=== PATIENT | male | born 1945 | race Hispanic/Latino ===

== ENCOUNTER 2020-10-14 14:01 | Inpatient (IN) | payer OTHER, MEDICARE ==
[~2020-10-14] VITALS: Ht 162.6 cm; Wt 72.4 kg
[~2020-10-14 14:01] MED LIST: MULT-1289 PO; PHEN100C9 PO
[2020-10-14] MEDS ORDERED: DEXAMETHASONE SOD PHOSPHATE 4 MG/ML 1ML VIAL IVP SCH (14:51)
[2020-10-14] MEDS ORDERED: 0.9% NACL 250ML IVPB SCH (15:00)
[2020-10-14] MEDS ORDERED: AZITHROMYCIN 500MG VIAL IVPB SCH (15:00)
[2020-10-14] MEDS ORDERED: CEFTRIAXONE 1G VIAL IVP SCH (15:00)
[2020-10-14] MEDS ORDERED: MAGNESIUM 2GM PREMIX 50ML 50 ML IV SCH (15:00)
[2020-10-14] MEDS ORDERED: LACTATED RINGERS 1000ML 1,000 ML IV SCH ×2 (15:00→18:00)
[2020-10-14] MEDS ORDERED: ALBUTEROL INHALER 90MCG/INH IH SCH (15:00)
[2020-10-14] MEDS ORDERED: MONTELUKAST SODIUM 10 MG TAB PO SCH (15:00)
[2020-10-14 15:12] LABS: BASOPHILS % (AUTO) 0.1 % (0.0-5.0); EOSINOPHILS % (AUTO) 1.6 % (0.0-8.0); HEMATOCRIT 42.2 % (42-54); LYMPHOCYTES % (AUTO) 9.9 % (21.0-51.0); MEAN CORPUSCULAR HEMOGLOBIN 31.8 pg (27.0-33.0); MEAN CORPUSCULAR HGB CONC 35.5 g/dL (32.0-36.0); MEAN CORPUSCULAR VOLUME 89.6 fL (79-99); MONOCYTES % (AUTO) 1.9 % (3.0-13.0); NEUTROPHILS % (AUTO) 86.2 % (40.0-77.0); PLATELET COUNT (AUTO) 205 K/uL (130-400); RED BLOOD CELL COUNT(AUTO) 4.71 MIL/uL (4.50-6.20); RED CELL DISTRIBUTION WIDTH 12.1 % (11.0-15.5); WHITE BLOOD COUNT (AUTO) 9.4 K/uL (4.8-10.8)
[2020-10-14 15:15] LABS: ABG BASE EXCESS 0.3 mmol/L (-2.0-3.0); ABG HCO3 22.4 mmol/L (21.0-28.0); ABG OXYGEN SATURATION 75.6 % (95.0-99.0); ABG PCO2 30 mmHg (35-48)
[2020-10-14 15:24] LABS: CARBON DIOXIDE 26 mmol/L (21-32); CHLORIDE 97 mmol/L (101-111); CREATININE 1.6 mg/dL (0.5-1.5); GLOMERULAR FILTR. RATE CALC 45 mL/min (>60); GLUCOSE,RANDOM 123 mg/dL (70-105); POTASSIUM 4.3 mmol/L (3.5-5.1); SODIUM SERUM 134 mmol/L (136-145); UREA NITROGEN, BLOOD 33 mg/dL (7-18)
[2020-10-14 15:25] LABS: INR 1.19 (0.85-1.15); PROTHROMBIN TIME 12.8 SEC (9.6-11.6)
[2020-10-14 15:26] LABS: PARTIAL THROMBOPLASTIN TIME 29.3 SEC (26.3-35.5)
[2020-10-14 15:39] LABS: ALANINE AMINOTRANSFERASE 113 U/L (12-78); ALBUMIN 2.4 g/dL (3.5-5.0); ASPARTATE AMINOTRANSFERASE 266 U/L (10-37); BILIRUBIN,TOTAL 0.9 mg/dL (0.2-1.0); MYOGLOBIN 710 ng/mL (10-92); TOTAL PROTEIN, SERUM 7.5 g/dL (6.0-8.3); TROPONIN I < 0.04 ng/mL (0.00-0.06)
[2020-10-14 15:50] LABS: CREATINE KINASE, TOTAL 527 U/L (21-232); CRP QUANTITATIVE 463.6 mg/L (0.00-9.0)
[2020-10-14 16:11] LABS: ABG BASE EXCESS -0.4 mmol/L (-2.0-3.0); ABG HCO3 22.9 mmol/L (21.0-28.0); ABG OXYGEN SATURATION 97.4 % (95.0-99.0); ABG PCO2 34 mmHg (35-48)
[2020-10-14 16:34] VITALS: BP 113/73
[2020-10-14] MEDS ORDERED: VANCOMYCIN PROTOCOL PER PHARMACY IV SCH (18:00)
[2020-10-14] MEDS ORDERED: CEFEPIME HCL 2 GM VIAL IVP SCH (18:00)
[2020-10-14] MEDS ORDERED: PHARMACY COMMUNICATION MISC SCH ×3 (18:00→18:30)
[2020-10-14] MEDS ORDERED: ALBUTEROL INHALER 90MCG/INH IH PRN (18:30)
[2020-10-14] MEDS: 0.9% NACL 250ML IVPB SCH (18:52)
[2020-10-14] MEDS: DOXYCYCLINE 100MG+NS 250ML IV SCH (18:52)
[2020-10-14] MEDS ORDERED: GUAIFENESIN-DM 200/20 MG 10 ML PO PRN (19:00)
[2020-10-14] MEDS: CEFEPIME HCL 2 GM VIAL IVP SCH ×2 (19:00→23:45)
[2020-10-14 19:02] VITALS: BP 128/90
[2020-10-14 19:27] VITALS: BP 128/90
[2020-10-14] MEDS ORDERED: 0.9% NACL 250ML 250 ML IV SCH (19:30)
[2020-10-14] MEDS ORDERED: VANCOMYCIN KIT 1 GM/250 ML IV.KIT IV ONE (19:30)
[2020-10-14] MEDS: ENOXAPARIN SODIUM 40 MG/0.4 ML SYRINGE SQ SCH (21:00)
[2020-10-14] MEDS ORDERED: COMPOUND IV REFRIGERATED 1 EACH IVSOLN MISC PRN (21:00)
[2020-10-14] MEDS: BARICITINIB (EUA) 2 MG TABLET PO SCH (21:00)
[2020-10-14] MEDS: PHENYTOIN SODIUM 100 MG ERCAP PO SCH (21:00)
[2020-10-14] MEDS: DEXAMETHASONE SOD PHOSPHATE 4 MG/ML 1ML VIAL IVP SCH (21:00)
[2020-10-14] MEDS: INSULIN HUMULIN R 100 UNIT/ML 3ML SQ SCH (21:00)
[2020-10-14] MEDS ORDERED: REMDESIVIR (EUA) 520 200 MG in 0.9% NACL 250ML 250 ML IV ONE (21:00)
[2020-10-14 22:00] VITALS: BP 122/83
[2020-10-14] MEDS ORDERED: DiphenhydrAMINE HCL 50 MG/ML VIAL ONE (22:35)
[2020-10-14 23:48] LABS: APPEARANCE,URINE Clear (CLEAR); BILIRUBIN,URINE Negative (NEGATIVE); COLOR,URINE Dark Yellow (YELLOW); GLUCOSE, URINE (UA) Negative (NEGATIVE); KETONES,URINE Negative (NEGATIVE); LEUKOCYTE ESTERASE ,URINE Negative (NEGATIVE); NITRATE,URINE Negative (NEGATIVE); OCCULT BLOOD,URINE Small (NEGATIVE); PROTEIN,URINE POS 2+ mg/dL (NEGATIVE)
[2020-10-14 23:52] LABS: CREATININE,URINE RANDOM 119 mg/dL (30-135); SODIUM,URINE RANDOM 51 mmol/l (40-220)
[2020-10-14 23:57] VITALS: BP 170/91
[2020-10-14 23:57] LABS: AMPHET/METH SCREEN,URINE NEGATIVE (NEGATIVE); BARBITURATE SCREEN, URINE NEGATIVE (NEGATIVE); BENZODIAZEPINES SCREEN,URINE NEGATIVE (NEGATIVE); CANNABINOID SCREEN,URINE NEGATIVE (NEGATIVE); COCAINE SCREEN,URINE NEGATIVE (NEGATIVE); OPIATE SCREEN,URINE NEGATIVE (NEGATIVE); PHENCYCLIDINE SCREEN,URINE NEGATIVE (NEGATIVE)
[2020-10-15] VITALS (58 sets, daily range): BP systolic 60–171; BP diastolic 34–93
[2020-10-15] LABS: BACTERIA,URINE Rare /HPF (None Seen); RBC,URINE 0-1 /HPF (0-1); WBC,URINE 0-1 /HPF (0-1)
[2020-10-15] MEDS ORDERED: HYDRALAZINE 20MG/ML VIAL IV SCH
[2020-10-15 00:01] LABS: FINE GRANULAR CASTS,URINE 0-2 /LPF (None Seen); OTHER CASTS, URINE MIXED CELL CASTS 1+ /LPF (None Seen)
[2020-10-15 00:02] LABS: SQUAMOUS EPITHELIAL CELL,UR Rare /HPF (0-2)
[2020-10-15] MEDS ORDERED: HYDRALAZINE 20MG/ML VIAL ONE (00:09)
[2020-10-15] MEDS ORDERED: DiphenhydrAMINE HCL 50 MG/ML VIAL ONE (00:51)
[2020-10-15] MEDS ORDERED: ROCURONIUM BROMIDE 10MG/1ML 5ML VL ONE (01:45)
[2020-10-15] MEDS ORDERED: PROPOFOL 1000 MG/100 ML 100 ML IV ONE (01:50)
[2020-10-15 03:47] LABS: ABG BASE EXCESS -2.6 mmol/L (-2.0-3.0); ABG HCO3 23.3 mmol/L (21.0-28.0); ABG OXYGEN SATURATION 90.1 % (95.0-99.0); ABG PCO2 45 mmHg (35-48)
[2020-10-15] MEDS: MIDAZOLAM 100MG-0.9% NS 100ML 100ML BAG IV PRN ×2 (04:39→15:28)
[2020-10-15] MEDS ORDERED: NOREPINEPHRINE 4MG/NS 250ML 250 ML IV ONE ×3 (05:27→16:14)
[2020-10-15] MEDS: VANCOMYCIN 500MG+NS 100ML IVPB IV SCH ×2 (05:59→20:52)
[2020-10-15] MEDS: DOXYCYCLINE 100MG+NS 250ML IV SCH ×2 (06:00→20:52)
[2020-10-15] MEDS: REMDESIVIR LABS MISC SCH (06:00)
[2020-10-15] MEDS ORDERED: FENTANYL CITRATE PF 0.05 MG/ML 1,000 MCG in 0.9%NACL 100ML 100 ML IVPB PRN (06:00)
[2020-10-15] MEDS: INSULIN HUMULIN R 100 UNIT/ML 3ML SQ SCH ×3 (06:32→16:30)
[2020-10-15 06:44] LABS: ALBUMIN 2.1 g/dL (3.5-5.0); BILIRUBIN,DIRECT 0.4 mg/dL (0.0-0.3); BILIRUBIN,TOTAL 0.7 mg/dL (0.2-1.0); CREATININE 1.1 mg/dL (0.5-1.5); POTASSIUM 4.1 mmol/L (3.5-5.1); TOTAL PROTEIN, SERUM 6.7 g/dL (6.0-8.3)
[2020-10-15] MEDS: 0.9%NACL 100ML 100 ML IV SCH ×2 (07:00→20:52)
[2020-10-15] MEDS: 0.9% NACL 250ML IVPB SCH ×2 (07:00→20:53)
[2020-10-15] MEDS: BARICITINIB (EUA) 2 MG TABLET PO SCH (09:00)
[2020-10-15] MEDS: PHENYTOIN SODIUM 100 MG ERCAP PO SCH (09:00)
[2020-10-15] MEDS: DEXAMETHASONE SOD PHOSPHATE 4 MG/ML 1ML VIAL IVP SCH ×2 (10:21→20:51)
[2020-10-15] MEDS: PANTOPRAZOLE 40 MG/VIAL IVP SCH (10:21)
[2020-10-15] MEDS: ENOXAPARIN SODIUM 40 MG/0.4 ML SYRINGE SQ SCH ×2 (10:23→20:51)
[2020-10-15] MEDS ORDERED: DEXTROSE 50%-WATER 50 ML DISP.SYRIN IV ONE (11:58)
[2020-10-15] MEDS: ARTIFICAL TEARS SOL 15 ML OU SCH ×2 (12:00→18:00)
[2020-10-15] MEDS ORDERED: NOREPINEPHRINE BITARTRATE 8 MG in 0.9% NACL 250ML 250 ML IV SCH (12:00)
[2020-10-15] MEDS ORDERED: NOREPINEPHRINE 8MG/NS 250 ML 250 ML IV SCH (13:00)
[2020-10-15 13:58] LABS: ABG BASE EXCESS -2.6 mmol/L (-2.0-3.0); ABG HCO3 22.1 mmol/L (21.0-28.0); ABG OXYGEN SATURATION 96.1 % (95.0-99.0); ABG PCO2 38 mmHg (35-48)
[2020-10-15] MEDS: MIDODRINE HCL 5 MG TABLET GT SCH ×2 (14:00→21:52)
[2020-10-15] MEDS: PROPOFOL 1000 MG/100 ML 100 ML IV SCH ×2 (15:30→22:41)
[2020-10-15] MEDS: CISATRACURIUM BESYLATE 100 MG in 0.9%NACL 100ML 100 ML IV SCH (16:42)
[2020-10-15] MEDS ORDERED: PHARMACY COMMUNICATION MISC SCH (20:00)
[2020-10-15] MEDS: FENTANYL 2500MCG+NS 250ML 250 ML IV SCH (20:23)
[2020-10-15] MEDS: PHENYTOIN 100MG (50MG/ML) INJ 100 MG/2 ML ML IV SCH (20:50)
[2020-10-15] MEDS ORDERED: REMDESIVIR (EUA) 520 100 MG in 0.9% NACL 250ML 250 ML IV SCH (21:00)
[2020-10-15] MEDS ORDERED: FAMOTIDINE 20MG VIAL IV SCH (21:00)
[2020-10-16] VITALS (66 sets, daily range): BP systolic 79–161; BP diastolic 48–82
[2020-10-16] MEDS: CISATRACURIUM BESYLATE 100 MG in 0.9%NACL 100ML 100 ML IV SCH ×3 (01:48→19:16)
[2020-10-16 04:58] LABS: BASOPHILS % (AUTO) 0.3 % (0.0-5.0); EOSINOPHILS % (AUTO) 0.1 % (0.0-8.0); HEMATOCRIT 38.3 % (42-54); LYMPHOCYTES % (AUTO) 4.9 % (21.0-51.0); MEAN CORPUSCULAR HEMOGLOBIN 31.7 pg (27.0-33.0); MEAN CORPUSCULAR HGB CONC 34.5 g/dL (32.0-36.0); MEAN CORPUSCULAR VOLUME 92.1 fL (79-99); NEUTROPHILS % (AUTO) 92.4 % (40.0-77.0); RED BLOOD CELL COUNT(AUTO) 4.16 MIL/uL (4.50-6.20); RED CELL DISTRIBUTION WIDTH 13.2 % (11.0-15.5); WHITE BLOOD COUNT (AUTO) 13.4 K/uL (4.8-10.8)
[2020-10-16] MEDS: MIDODRINE HCL 5 MG TABLET GT SCH ×3 (05:08→19:48)
[2020-10-16] MEDS: DOXYCYCLINE 100MG+NS 250ML IV SCH ×2 (05:08→17:48)
[2020-10-16] MEDS: 0.9% NACL 250ML IVPB SCH ×2 (05:08→17:48)
[2020-10-16 05:09] LABS: ALBUMIN 1.7 g/dL (3.5-5.0); BILIRUBIN,TOTAL 1.8 mg/dL (0.2-1.0); CREATININE 2.8 mg/dL (0.5-1.5); POTASSIUM 4.7 mmol/L (3.5-5.1); TOTAL PROTEIN, SERUM 6.2 g/dL (6.0-8.3)
[2020-10-16 05:21] LABS: PLATELET COUNT (AUTO) 99 K/uL (130-400)
[2020-10-16] MEDS: VANCOMYCIN 500MG+NS 100ML IVPB IV SCH (06:20)
[2020-10-16] MEDS: 0.9%NACL 100ML 100 ML IV SCH (06:20)
[2020-10-16] MEDS: PROPOFOL 1000 MG/100 ML 100 ML IV SCH ×3 (06:20→22:01)
[2020-10-16] MEDS: REMDESIVIR LABS MISC SCH (06:39)
[2020-10-16 06:47] LABS: CRP QUANTITATIVE 403.9 mg/L (0.00-9.0)
[2020-10-16] MEDS ORDERED: VANCOMYCIN 750MG 750 MG in 0.9% NACL 250ML 250 ML IVPB SCH (07:00)
[2020-10-16] MEDS: ARTIFICAL TEARS SOL 15 ML OU SCH ×4 (07:00→23:35)
[2020-10-16 07:04] LABS: ABG BASE EXCESS -7.2 mmol/L (-2.0-3.0); ABG OXYGEN SATURATION 99.2 % (95.0-99.0); ABG PCO2 41 mmHg (35-48)
[2020-10-16 07:15] LABS: HEPATITIS A ANTIBODY IGM Negative (Negative); HEPATITIS B CORE IGM Negative (Negative); HEPATITIS Bs ANTIGEN SCREEN P Negative (Negative)
[2020-10-16] MEDS: INSULIN HUMULIN R 100 UNIT/ML 3ML SQ SCH ×5 (07:30→23:42)
[2020-10-16] MEDS: ENOXAPARIN SODIUM 40 MG/0.4 ML SYRINGE SQ SCH ×2 (09:21→19:48)
[2020-10-16] MEDS: DEXAMETHASONE SOD PHOSPHATE 4 MG/ML 1ML VIAL IVP SCH (09:21)
[2020-10-16] MEDS: BARICITINIB (EUA) 2 MG TABLET PO SCH (09:21)
[2020-10-16] MEDS: PANTOPRAZOLE 40 MG/VIAL IVP SCH (09:21)
[2020-10-16] MEDS: PHENYTOIN 100MG (50MG/ML) INJ 100 MG/2 ML ML IV SCH ×2 (10:25→19:46)
[2020-10-16] MEDS: CEFEPIME HCL 2 GM VIAL IVP SCH (17:47)
[2020-10-16] MEDS: MIDAZOLAM 100MG-0.9% NS 100ML 100ML BAG IV PRN (19:47)
[2020-10-16] MEDS: FENTANYL 2500MCG+NS 250ML 250 ML IV SCH (19:47)
[2020-10-17] VITALS (40 sets, daily range): BP systolic 97–147; BP diastolic 49–79
[2020-10-17 04:33] LABS: BASOPHILS % (AUTO) 0.2 % (0.0-5.0); EOSINOPHILS % (AUTO) 0.1 % (0.0-8.0); LYMPHOCYTES % (AUTO) 6.5 % (21.0-51.0); MEAN CORPUSCULAR HEMOGLOBIN 31.3 pg (27.0-33.0); MEAN CORPUSCULAR HGB CONC 33.7 g/dL (32.0-36.0); MEAN CORPUSCULAR VOLUME 92.8 fL (79-99); MONOCYTES % (AUTO) 0.8 % (3.0-13.0); NEUTROPHILS % (AUTO) 91.4 % (40.0-77.0); PLATELET COUNT (AUTO) 120 K/uL (130-400); RED BLOOD CELL COUNT(AUTO) 3.77 MIL/uL (4.50-6.20); WHITE BLOOD COUNT (AUTO) 10.1 K/uL (4.8-10.8)
[2020-10-17] MEDS: CISATRACURIUM BESYLATE 100 MG in 0.9%NACL 100ML 100 ML IV SCH ×2 (04:38→16:57)
[2020-10-17 04:51] LABS: ALBUMIN 1.4 g/dL (3.5-5.0); BILIRUBIN,TOTAL 1.6 mg/dL (0.2-1.0); CREATININE 3.3 mg/dL (0.5-1.5); POTASSIUM 4.5 mmol/L (3.5-5.1); TOTAL PROTEIN, SERUM 5.6 g/dL (6.0-8.3)
[2020-10-17] MEDS: ARTIFICAL TEARS SOL 15 ML OU SCH ×3 (05:16→16:56)
[2020-10-17] MEDS: MIDODRINE HCL 5 MG TABLET GT SCH ×2 (05:16→14:52)
[2020-10-17] MEDS: 0.9% NACL 250ML IVPB SCH ×2 (05:16→17:44)
[2020-10-17] MEDS: DOXYCYCLINE 100MG+NS 250ML IV SCH ×2 (05:16→17:44)
[2020-10-17 05:50] LABS: CRP QUANTITATIVE 475.4 mg/L (0.00-9.0)
[2020-10-17] MEDS: INSULIN HUMULIN R 100 UNIT/ML 3ML SQ SCH ×3 (06:00→18:00)
[2020-10-17] MEDS: PROPOFOL 1000 MG/100 ML 100 ML IV SCH ×2 (06:22→16:59)
[2020-10-17] MEDS: REMDESIVIR LABS MISC SCH (06:37)
[2020-10-17] MEDS ORDERED: VANCOMYCIN 750MG 750 MG in 0.9% NACL 250ML 250 ML IVPB SCH (09:00)
[2020-10-17] MEDS: ENOXAPARIN SODIUM 40 MG/0.4 ML SYRINGE SQ SCH ×2 (09:11→19:59)
[2020-10-17] MEDS: BARICITINIB (EUA) 2 MG TABLET PO SCH (09:11)
[2020-10-17] MEDS: PANTOPRAZOLE 40 MG/VIAL IVP SCH (09:11)
[2020-10-17] MEDS: PHENYTOIN 100MG (50MG/ML) INJ 100 MG/2 ML ML IV SCH ×2 (09:31→19:59)
[2020-10-17] MEDS ORDERED: FUROSEMIDE 40MG VIAL IV SCH (10:00)
[2020-10-17] MEDS: SOLU-MEDROL 40MG VIAL IVP SCH ×2 (11:25→19:59)
[2020-10-17] MEDS: CEFEPIME HCL 2 GM VIAL IVP SCH (17:45)
[2020-10-17 18:51] LABS: PROTEIN,URINE RANDOM 92.8 mg/dL (0-11.9)
[2020-10-17] MEDS: FENTANYL 2500MCG+NS 250ML 250 ML IV SCH (22:48)
[2020-10-18] VITALS (33 sets, daily range): BP systolic 93–131; BP diastolic 50–71
[2020-10-18] MEDS: MIDODRINE HCL 5 MG TABLET GT SCH ×4 (00:34→20:00)
[2020-10-18] MEDS: PROPOFOL 1000 MG/100 ML 100 ML IV SCH ×3 (00:45→18:02)
[2020-10-18] MEDS: CISATRACURIUM BESYLATE 100 MG in 0.9%NACL 100ML 100 ML IV SCH ×3 (00:46→20:01)
[2020-10-18] MEDS: ARTIFICAL TEARS SOL 15 ML OU SCH ×4 (00:47→17:20)
[2020-10-18 04:06] LABS: HEMATOCRIT 35.1 % (42-54); MEAN CORPUSCULAR HEMOGLOBIN 31.4 pg (27.0-33.0); MEAN CORPUSCULAR VOLUME 95.1 fL (79-99); PLATELET COUNT (AUTO) 142 K/uL (130-400); RED BLOOD CELL COUNT(AUTO) 3.69 MIL/uL (4.50-6.20); RED CELL DISTRIBUTION WIDTH 14.5 % (11.0-15.5); WHITE BLOOD COUNT (AUTO) 8.5 K/uL (4.8-10.8)
[2020-10-18 04:19] LABS: ALBUMIN 1.4 g/dL (3.5-5.0); BILIRUBIN,TOTAL 2.1 mg/dL (0.2-1.0); CREATININE 3.6 mg/dL (0.5-1.5); MAGNESIUM 2.7 mg/dL (1.80-2.40); PHOSPHORUS 5.7 mg/dL (2.5-4.9); POTASSIUM 4.8 mmol/L (3.5-5.1); TOTAL PROTEIN, SERUM 5.8 g/dL (6.0-8.3); URIC ACID 5.6 mg/dL (2.6-7.2)
[2020-10-18 04:37] LABS: BAND NEUTROPHILS % (MANUAL) 8 % (0-2); LYMPHOCYTES % (MANUAL) 1 % (22-44); MAN.DIFF COMMENT-IMPRESSION MANUAL DIFFERENTIAL; MONOCYTES % (MANUAL) 1 % (2-9); PLATELET MORPHOLOGY COMMENT ADEQUATE; SEGMENTED NEUTROPHILS % 90 % (40-70)
[2020-10-18] MEDS: INSULIN HUMULIN R 100 UNIT/ML 3ML SQ SCH ×4 (06:00→17:04)
[2020-10-18] MEDS: DOXYCYCLINE 100MG+NS 250ML IV SCH ×2 (06:20→17:18)
[2020-10-18] MEDS: 0.9% NACL 250ML IVPB SCH ×2 (06:20→17:19)
[2020-10-18] MEDS: REMDESIVIR LABS MISC SCH (06:21)
[2020-10-18 07:08] LABS: ABG BASE EXCESS -9.4 mmol/L (-2.0-3.0); ABG HCO3 16.6 mmol/L (21.0-28.0); ABG OXYGEN SATURATION 95.1 % (95.0-99.0); ABG PCO2 37 mmHg (35-48)
[2020-10-18] MEDS: PHENYTOIN 100MG (50MG/ML) INJ 100 MG/2 ML ML IV SCH ×2 (08:32→19:59)
[2020-10-18] MEDS: PANTOPRAZOLE 40 MG/VIAL IVP SCH (08:32)
[2020-10-18] MEDS: BARICITINIB (EUA) 2 MG TABLET PO SCH (08:33)
[2020-10-18] MEDS: SOLU-MEDROL 40MG VIAL IVP SCH ×2 (08:33→20:00)
[2020-10-18] MEDS: ENOXAPARIN SODIUM 40 MG/0.4 ML SYRINGE SQ SCH (08:33)
[2020-10-18] MEDS ORDERED: SODIUM BICARB 50MEQ 50ML VIAL IV ONE (09:24)
[2020-10-18] MEDS ORDERED: SODIUM BICARB 50MEQ 50ML VIAL 100 ML ONE (09:27)
[2020-10-18] MEDS ORDERED: SODIUM BICARB 50MEQ 50ML VIAL IV SCH (09:30)
[2020-10-18] MEDS: MIDAZOLAM 100MG-0.9% NS 100ML 100ML BAG IV PRN (12:40)
[2020-10-18] MEDS: FUROSEMIDE 40MG VIAL IV SCH (17:20)
[2020-10-18] MEDS: CEFEPIME HCL 2 GM VIAL IVP SCH (17:30)
[2020-10-18 17:52] LABS: INR 1.11 (0.85-1.15)
[2020-10-18 17:53] LABS: PARTIAL THROMBOPLASTIN TIME 24.8 SEC (26.3-35.5)
[2020-10-18] MEDS: HEPARIN 25,000 UNITS/250ML D5W 250 ML IV SCH (18:18)
[2020-10-18 19:14] LABS: ABG HCO3 20.8 mmol/L (21.0-28.0); ABG PCO2 41 mmHg (35-48)
[2020-10-19] VITALS (33 sets, daily range): BP systolic 96–156; BP diastolic 57–80
[2020-10-19] MEDS: FENTANYL 2500MCG+NS 250ML 250 ML IV SCH (01:15)
[2020-10-19] MEDS: ARTIFICAL TEARS SOL 15 ML OU SCH ×5 (01:16→23:43)
[2020-10-19] MEDS: PROPOFOL 1000 MG/100 ML 100 ML IV SCH ×3 (02:00→21:20)
[2020-10-19 02:26] LABS: BASOPHILS % (AUTO) 0.1 % (0.0-5.0); EOSINOPHILS % (AUTO) 0.1 % (0.0-8.0); HEMATOCRIT 34.4 % (42-54); LYMPHOCYTES % (AUTO) 7.7 % (21.0-51.0); MEAN CORPUSCULAR HEMOGLOBIN 31.5 pg (27.0-33.0); MEAN CORPUSCULAR HGB CONC 34.3 g/dL (32.0-36.0); MEAN CORPUSCULAR VOLUME 91.7 fL (79-99); NEUTROPHILS % (AUTO) 85.5 % (40.0-77.0); PLATELET COUNT (AUTO) 166 K/uL (130-400); RED BLOOD CELL COUNT(AUTO) 3.75 MIL/uL (4.50-6.20); RED CELL DISTRIBUTION WIDTH 14.5 % (11.0-15.5)
[2020-10-19 02:41] LABS: INR 1.13 (0.85-1.15); PROTHROMBIN TIME 12.2 SEC (9.6-11.6)
[2020-10-19 02:42] LABS: PARTIAL THROMBOPLASTIN TIME 65.5 SEC (26.3-35.5)
[2020-10-19 03:44] LABS: ALBUMIN 1.5 g/dL (3.5-5.0); BILIRUBIN,TOTAL 1.5 mg/dL (0.2-1.0); CREATININE 3.6 mg/dL (0.5-1.5); MAGNESIUM 2.8 mg/dL (1.80-2.40); POTASSIUM 4.6 mmol/L (3.5-5.1); TOTAL PROTEIN, SERUM 6.1 g/dL (6.0-8.3)
[2020-10-19 03:50] LABS: CRP QUANTITATIVE 195.1 mg/L (0.00-9.0)
[2020-10-19] MEDS: 0.9% NACL 250ML IVPB SCH ×2 (04:40→16:13)
[2020-10-19] MEDS: FUROSEMIDE 40MG VIAL IV SCH ×2 (04:40→16:13)
[2020-10-19] MEDS: DOXYCYCLINE 100MG+NS 250ML IV SCH ×2 (04:40→16:13)
[2020-10-19] MEDS: MIDODRINE HCL 5 MG TABLET GT SCH ×3 (04:41→21:09)
[2020-10-19] MEDS: CISATRACURIUM BESYLATE 100 MG in 0.9%NACL 100ML 100 ML IV SCH ×3 (05:07→21:15)
[2020-10-19] MEDS: INSULIN HUMULIN R 100 UNIT/ML 3ML SQ SCH ×4 (05:09→17:46)
[2020-10-19 07:18] LABS: ABG BASE EXCESS -3.7 mmol/L (-2.0-3.0); ABG OXYGEN SATURATION 94.4 % (95.0-99.0); ABG PCO2 32 mmHg (35-48)
[2020-10-19] MEDS: PANTOPRAZOLE 40 MG/VIAL IVP SCH (08:43)
[2020-10-19] MEDS: PHENYTOIN 100MG (50MG/ML) INJ 100 MG/2 ML ML IV SCH ×2 (08:43→19:52)
[2020-10-19] MEDS: SOLU-MEDROL 40MG VIAL IVP SCH ×2 (08:43→19:47)
[2020-10-19] MEDS: BARICITINIB (EUA) 2 MG TABLET PO SCH (08:43)
[2020-10-19 11:05] LABS: MYOGLOBIN 1255 ng/mL (10-92)
[2020-10-19 11:09] LABS: CREATINE KINASE, TOTAL 583 U/L (21-232)
[2020-10-19] MEDS: LACTULOSE 20 GM/30 ML UDCUP PO SCH (12:52)
[2020-10-19] MEDS ORDERED: PHARMACY COMMUNICATION MISC SCH (17:00)
[2020-10-19] MEDS ORDERED: FUROSEMIDE 100 MG/NS 100ML IV SCH ×2 (17:30)
[2020-10-19] MEDS: CEFEPIME HCL 2 GM VIAL IVP SCH (17:45)
[2020-10-19] MEDS: MIDAZOLAM 100MG-0.9% NS 100ML 100ML BAG IV PRN ×2 (19:51→21:10)
[2020-10-20] VITALS (33 sets, daily range): BP systolic 118–143; BP diastolic 64–80
[2020-10-20] MEDS: FENTANYL 2500MCG+NS 250ML 250 ML IV SCH ×2 (00:56→14:32)
[2020-10-20 04:52] LABS: BASOPHILS % (AUTO) 0.4 % (0.0-5.0); HEMATOCRIT 38.1 % (42-54); LYMPHOCYTES % (AUTO) 7.5 % (21.0-51.0); MEAN CORPUSCULAR HEMOGLOBIN 31.4 pg (27.0-33.0); MEAN CORPUSCULAR HGB CONC 33.6 g/dL (32.0-36.0); MEAN CORPUSCULAR VOLUME 93.4 fL (79-99); MONOCYTES % (AUTO) 6.7 % (3.0-13.0); PLATELET COUNT (AUTO) 195 K/uL (130-400); RED BLOOD CELL COUNT(AUTO) 4.08 MIL/uL (4.50-6.20); RED CELL DISTRIBUTION WIDTH 14.3 % (11.0-15.5); WHITE BLOOD COUNT (AUTO) 8.2 K/uL (4.8-10.8)
[2020-10-20 05:24] LABS: ABG BASE EXCESS -3.3 mmol/L (-2.0-3.0); ABG HCO3 19.9 mmol/L (21.0-28.0); ABG PCO2 31 mmHg (35-48)
[2020-10-20] MEDS: ARTIFICAL TEARS SOL 15 ML OU SCH (05:32)
[2020-10-20] MEDS: DOXYCYCLINE 100MG+NS 250ML IV SCH ×2 (05:32→17:46)
[2020-10-20] MEDS: 0.9% NACL 250ML IVPB SCH ×2 (05:32→17:46)
[2020-10-20] MEDS: MIDODRINE HCL 5 MG TABLET GT SCH ×3 (05:33→21:04)
[2020-10-20 05:35] LABS: BAND NEUTROPHILS % (MANUAL) 1 % (0-2); LYMPHOCYTES % (MANUAL) 11 % (22-44); MONOCYTES % (MANUAL) 4 % (2-9); SEGMENTED NEUTROPHILS % 84 % (40-70)
[2020-10-20 05:37] LABS: MAN.DIFF COMMENT-IMPRESSION MANUAL DIFFERENTIAL; PLATELET MORPHOLOGY COMMENT ADEQUATE
[2020-10-20] MEDS: CISATRACURIUM BESYLATE 100 MG in 0.9%NACL 100ML 100 ML IV SCH ×2 (05:43→17:00)
[2020-10-20 05:49] LABS: ALBUMIN 1.7 g/dL (3.5-5.0); BILIRUBIN,TOTAL 1.3 mg/dL (0.2-1.0); CREATININE 3.4 mg/dL (0.5-1.5); MAGNESIUM 2.7 mg/dL (1.80-2.40); PHOSPHORUS 5.6 mg/dL (2.5-4.9); POTASSIUM 4.5 mmol/L (3.5-5.1); TOTAL PROTEIN, SERUM 6.8 g/dL (6.0-8.3)
[2020-10-20] MEDS: INSULIN HUMULIN R 100 UNIT/ML 3ML SQ SCH ×4 (06:00→18:00)
[2020-10-20] MEDS: MIDAZOLAM 100MG-0.9% NS 100ML 100ML BAG IV PRN ×2 (06:33→19:36)
[2020-10-20] MEDS: PHENYTOIN 100MG (50MG/ML) INJ 100 MG/2 ML ML IV SCH ×2 (10:38→19:34)
[2020-10-20] MEDS: BARICITINIB (EUA) 2 MG TABLET PO SCH (10:39)
[2020-10-20] MEDS: PANTOPRAZOLE 40 MG/VIAL IVP SCH (10:39)
[2020-10-20] MEDS: LACTULOSE 20 GM/30 ML UDCUP PO SCH (10:39)
[2020-10-20] MEDS: SOLU-MEDROL 40MG VIAL IVP SCH ×2 (10:39→19:35)
[2020-10-20] MEDS ORDERED: PHARMACY COMMUNICATION MISC SCH (13:30)
[2020-10-20] MEDS: PROPOFOL 1000 MG/100 ML 100 ML IV SCH (18:30)
[2020-10-20] MEDS: CEFEPIME HCL 2 GM VIAL IVP SCH (19:34)
[2020-10-20] MEDS: HEPARIN 25,000 UNITS/250ML D5W 250 ML IV SCH (21:04)
[2020-10-21] VITALS (43 sets, daily range): BP systolic 95–175; BP diastolic 39–84
[2020-10-21 01:28] LABS: BASOPHILS % (AUTO) 0.5 % (0.0-5.0); HEMATOCRIT 42.7 % (42-54); MEAN CORPUSCULAR HEMOGLOBIN 31.5 pg (27.0-33.0); MEAN CORPUSCULAR HGB CONC 32.8 g/dL (32.0-36.0); MONOCYTES % (AUTO) 6.9 % (3.0-13.0); NEUTROPHILS % (AUTO) 71.3 % (40.0-77.0); NUCLEATED RED BLOOD CELLS 0.2 % (0.0-0.19); PLATELET COUNT (AUTO) 252 K/uL (130-400); RED BLOOD CELL COUNT(AUTO) 4.45 MIL/uL (4.50-6.20); RED CELL DISTRIBUTION WIDTH 14.6 % (11.0-15.5); WHITE BLOOD COUNT (AUTO) 11.2 K/uL (4.8-10.8)
[2020-10-21 01:44] LABS: ALBUMIN 1.7 g/dL (3.5-5.0); BILIRUBIN,TOTAL 1.1 mg/dL (0.2-1.0); CREATININE 3.1 mg/dL (0.5-1.5); CRP QUANTITATIVE 134.3 mg/L (0.00-9.0); POTASSIUM 5.4 mmol/L (3.5-5.1); TOTAL PROTEIN, SERUM 7.4 g/dL (6.0-8.3)
[2020-10-21] MEDS: CISATRACURIUM BESYLATE 100 MG in 0.9%NACL 100ML 100 ML IV SCH ×2 (01:49→05:50)
[2020-10-21] MEDS: FENTANYL 2500MCG+NS 250ML 250 ML IV SCH (03:21)
[2020-10-21 03:34] LABS: ABG BASE EXCESS -5.8 mmol/L (-2.0-3.0); ABG HCO3 19.4 mmol/L (21.0-28.0); ABG PCO2 38 mmHg (35-48)
[2020-10-21] MEDS: 0.9% NACL 250ML IVPB SCH ×2 (05:36→17:17)
[2020-10-21] MEDS: DOXYCYCLINE 100MG+NS 250ML IV SCH ×2 (05:36→17:17)
[2020-10-21] MEDS: MIDAZOLAM 100MG-0.9% NS 100ML 100ML BAG IV PRN (05:49)
[2020-10-21] MEDS: PROPOFOL 1000 MG/100 ML 100 ML IV SCH ×3 (05:50→22:57)
[2020-10-21] MEDS: INSULIN HUMULIN R 100 UNIT/ML 3ML SQ SCH ×4 (06:00→17:36)
[2020-10-21] MEDS: MIDODRINE HCL 5 MG TABLET GT SCH ×3 (06:26→22:00)
[2020-10-21] MEDS: BARICITINIB (EUA) 2 MG TABLET PO SCH (08:04)
[2020-10-21] MEDS: PANTOPRAZOLE 40 MG/VIAL IVP SCH (08:04)
[2020-10-21] MEDS: PHENYTOIN 100MG (50MG/ML) INJ 100 MG/2 ML ML IV SCH ×2 (08:04→20:36)
[2020-10-21] MEDS: LACTULOSE 20 GM/30 ML UDCUP PO SCH (08:05)
[2020-10-21] MEDS: SOLU-MEDROL 40MG VIAL IVP SCH ×2 (08:07→20:36)
[2020-10-21] MEDS ORDERED: [UNRECOGNIZED DRUG - REMARK] MISC SCH (14:30)
[2020-10-21] MEDS: CEFEPIME HCL 2 GM VIAL IVP SCH (18:06)
[2020-10-22] VITALS (46 sets, daily range): BP systolic 102–159; BP diastolic 64–92
[2020-10-22] MEDS: FENTANYL 2500MCG+NS 250ML 250 ML IV SCH (02:54)
[2020-10-22] MEDS: HEPARIN 25,000 UNITS/250ML D5W 250 ML IV SCH (04:28)
[2020-10-22] MEDS: PROPOFOL 1000 MG/100 ML 100 ML IV SCH ×3 (04:31→21:16)
[2020-10-22 05:02] LABS: HEMATOCRIT 40.8 % (42-54); MEAN CORPUSCULAR HEMOGLOBIN 31.1 pg (27.0-33.0); MEAN CORPUSCULAR HGB CONC 32.1 g/dL (32.0-36.0); MEAN CORPUSCULAR VOLUME 96.9 fL (79-99); NUCLEATED RED BLOOD CELLS 0.2 % (0.0-0.19); RED BLOOD CELL COUNT(AUTO) 4.21 MIL/uL (4.50-6.20); RED CELL DISTRIBUTION WIDTH 14.9 % (11.0-15.5); WHITE BLOOD COUNT (AUTO) 11.1 K/uL (4.8-10.8)
[2020-10-22] MEDS: 0.9% NACL 250ML IVPB SCH ×2 (05:37→17:21)
[2020-10-22] MEDS: MIDODRINE HCL 5 MG TABLET GT SCH ×3 (05:37→20:44)
[2020-10-22] MEDS: DOXYCYCLINE 100MG+NS 250ML IV SCH ×2 (05:37→17:20)
[2020-10-22] MEDS: INSULIN HUMULIN R 100 UNIT/ML 3ML SQ SCH ×5 (05:38→23:56)
[2020-10-22 07:02] LABS: ALBUMIN 1.6 g/dL (3.5-5.0); BILIRUBIN,TOTAL 0.8 mg/dL (0.2-1.0); CREATININE 3.1 mg/dL (0.5-1.5); CRP QUANTITATIVE 121.7 mg/L (0.00-9.0); POTASSIUM 5.7 mmol/L (3.5-5.1); TOTAL PROTEIN, SERUM 6.8 g/dL (6.0-8.3)
[2020-10-22] MEDS: LACTULOSE 20 GM/30 ML UDCUP PO SCH (08:08)
[2020-10-22] MEDS: SOLU-MEDROL 40MG VIAL IVP SCH ×2 (08:08→20:43)
[2020-10-22] MEDS: BARICITINIB (EUA) 2 MG TABLET PO SCH (08:08)
[2020-10-22] MEDS: PANTOPRAZOLE 40 MG/VIAL IVP SCH (08:08)
[2020-10-22] MEDS: PHENYTOIN 100MG (50MG/ML) INJ 100 MG/2 ML ML IV SCH ×2 (08:47→20:41)
[2020-10-22 09:25] LABS: ABG BASE EXCESS -6.7 mmol/L (-2.0-3.0); ABG HCO3 18.3 mmol/L (21.0-28.0); ABG OXYGEN SATURATION 93.1 % (95.0-99.0); ABG PCO2 36 mmHg (35-48)
[2020-10-22] MEDS: CISATRACURIUM BESYLATE 100 MG in 0.9%NACL 100ML 100 ML IV SCH (09:31)
[2020-10-22] MEDS ORDERED: KAYEXALATE 15GM/60ML PO SCH (15:00)
[2020-10-22] MEDS: CEFEPIME HCL 2 GM VIAL IVP SCH (18:27)
[2020-10-22] MEDS: MIDAZOLAM 100MG-0.9% NS 100ML 100ML BAG IV PRN (23:43)
[2020-10-23] VITALS (46 sets, daily range): BP systolic 93–133; BP diastolic 36–79
[2020-10-23 01:20] LABS: BASOPHILS % (AUTO) 0.2 % (0.0-5.0); EOSINOPHILS % (AUTO) 0.1 % (0.0-8.0); HEMATOCRIT 39.4 % (42-54); LYMPHOCYTES % (AUTO) 4.9 % (21.0-51.0); MEAN CORPUSCULAR HEMOGLOBIN 31.6 pg (27.0-33.0); MEAN CORPUSCULAR HGB CONC 32.5 g/dL (32.0-36.0); MEAN CORPUSCULAR VOLUME 97.3 fL (79-99); MONOCYTES % (AUTO) 5.4 % (3.0-13.0); NEUTROPHILS % (AUTO) 86.2 % (40.0-77.0); NUCLEATED RED BLOOD CELLS 0.3 % (0.0-0.19); PLATELET COUNT (AUTO) 249 K/uL (130-400); RED BLOOD CELL COUNT(AUTO) 4.05 MIL/uL (4.50-6.20); RED CELL DISTRIBUTION WIDTH 15.1 % (11.0-15.5); WHITE BLOOD COUNT (AUTO) 10.4 K/uL (4.8-10.8)
[2020-10-23 01:33] LABS: INR 1.22 (0.85-1.15); PROTHROMBIN TIME 13.1 SEC (9.6-11.6)
[2020-10-23 01:35] LABS: PARTIAL THROMBOPLASTIN TIME 83.4 SEC (26.3-35.5)
[2020-10-23 01:46] LABS: ALBUMIN 1.6 g/dL (3.5-5.0); BILIRUBIN,TOTAL 0.8 mg/dL (0.2-1.0); CREATININE 3.3 mg/dL (0.5-1.5); CRP QUANTITATIVE 116.5 mg/L (0.00-9.0); MAGNESIUM 2.9 mg/dL (1.80-2.40); PHOSPHORUS 7.4 mg/dL (2.5-4.9); TOTAL PROTEIN, SERUM 6.6 g/dL (6.0-8.3)
[2020-10-23 01:56] LABS: POTASSIUM 6.1 mmol/L (3.5-5.1)
[2020-10-23] MEDS: CISATRACURIUM BESYLATE 100 MG in 0.9%NACL 100ML 100 ML IV SCH ×2 (02:40→16:49)
[2020-10-23] MEDS: PROPOFOL 1000 MG/100 ML 100 ML IV SCH ×3 (02:41→18:10)
[2020-10-23] MEDS: FENTANYL 2500MCG+NS 250ML 250 ML IV SCH ×2 (02:41→20:00)
[2020-10-23] MEDS ORDERED: INSULIN HUMULIN R 100 UNIT/ML 3ML IV ONE (03:30)
[2020-10-23] MEDS ORDERED: DEXTROSE 50%-WATER 50 ML DISP.SYRIN IV ONE ×2 (03:30→03:31)
[2020-10-23 04:03] LABS: ABG BASE EXCESS -6.5 mmol/L (-2.0-3.0); ABG OXYGEN SATURATION 95.1 % (95.0-99.0); ABG PCO2 33 mmHg (35-48)
[2020-10-23] MEDS: DOXYCYCLINE 100MG+NS 250ML IV SCH ×2 (05:23→17:19)
[2020-10-23] MEDS: 0.9% NACL 250ML IVPB SCH ×2 (05:23→17:19)
[2020-10-23] MEDS: MIDODRINE HCL 5 MG TABLET GT SCH ×3 (05:23→19:58)
[2020-10-23] MEDS: INSULIN HUMULIN R 100 UNIT/ML 3ML SQ SCH ×3 (06:00→17:55)
[2020-10-23 07:13] LABS: INR 1.21 (0.85-1.15)
[2020-10-23 07:14] LABS: PARTIAL THROMBOPLASTIN TIME 82.3 SEC (26.3-35.5)
[2020-10-23] MEDS: SOLU-MEDROL 40MG VIAL IVP SCH ×2 (08:04→19:58)
[2020-10-23] MEDS: PANTOPRAZOLE 40 MG/VIAL IVP SCH (08:04)
[2020-10-23] MEDS: LACTULOSE 20 GM/30 ML UDCUP PO SCH (08:05)
[2020-10-23] MEDS: BARICITINIB (EUA) 2 MG TABLET PO SCH (09:11)
[2020-10-23] MEDS: PHENYTOIN 100MG (50MG/ML) INJ 100 MG/2 ML ML IV SCH ×2 (09:12→19:58)
[2020-10-23 13:29] LABS: CREATINE KINASE, TOTAL 210 U/L (21-232)
[2020-10-23 14:05] LABS: MYOGLOBIN 1179 ng/mL (10-92)
[2020-10-23] MEDS: HEPARIN 25,000 UNITS/250ML D5W 250 ML IV SCH (16:41)
[2020-10-23] MEDS: CEFEPIME HCL 2 GM VIAL IVP SCH (18:03)
[2020-10-24] VITALS (39 sets, daily range): BP systolic 79–129; BP diastolic 48–83
[2020-10-24] MEDS ORDERED: DEXTROSE 50%-WATER 50 ML DISP.SYRIN IV ONE ×3 (00:38→14:00)
[2020-10-24] MEDS: MIDAZOLAM 100MG-0.9% NS 100ML 100ML BAG IV PRN (00:43)
[2020-10-24] MEDS ORDERED: INSULIN HUMULIN R 100 UNIT/ML 3ML IV ONE ×2 (01:00→14:00)
[2020-10-24 03:47] LABS: ABG BASE EXCESS -10.8 mmol/L (-2.0-3.0); ABG HCO3 14.7 mmol/L (21.0-28.0); ABG PCO2 33 mmHg (35-48)
[2020-10-24] MEDS ORDERED: KAYEXALATE 15GM/60ML PO ONE (04:30)
[2020-10-24] MEDS: MIDODRINE HCL 5 MG TABLET GT SCH ×3 (04:46→19:42)
[2020-10-24] MEDS: DOXYCYCLINE 100MG+NS 250ML IV SCH ×2 (04:46→15:57)
[2020-10-24] MEDS: INSULIN HUMULIN R 100 UNIT/ML 3ML SQ SCH ×4 (04:47→17:56)
[2020-10-24] MEDS: 0.9% NACL 250ML IVPB SCH ×2 (04:47→15:58)
[2020-10-24 04:52] LABS: BASOPHILS % (AUTO) 0.3 % (0.0-5.0); HEMATOCRIT 48.1 % (42-54); MEAN CORPUSCULAR HEMOGLOBIN 31.2 pg (27.0-33.0); MEAN CORPUSCULAR VOLUME 100.6 fL (79-99); MONOCYTES % (AUTO) 4.6 % (3.0-13.0); NEUTROPHILS % (AUTO) 87.3 % (40.0-77.0); NUCLEATED RED BLOOD CELLS 0.3 % (0.0-0.19); PLATELET COUNT (AUTO) 264 K/uL (130-400); RED BLOOD CELL COUNT(AUTO) 4.78 MIL/uL (4.50-6.20); RED CELL DISTRIBUTION WIDTH 15.8 % (11.0-15.5); WHITE BLOOD COUNT (AUTO) 15.1 K/uL (4.8-10.8)
[2020-10-24 05:31] LABS: CREATININE 3.4 mg/dL (0.5-1.5); CRP QUANTITATIVE 103.1 mg/L (0.00-9.0)
[2020-10-24] MEDS: CISATRACURIUM BESYLATE 100 MG in 0.9%NACL 100ML 100 ML IV SCH ×2 (05:39→15:59)
[2020-10-24] MEDS: PROPOFOL 1000 MG/100 ML 100 ML IV SCH ×2 (05:39→15:54)
[2020-10-24 06:10] LABS: POTASSIUM 6.7 mmol/L (3.5-5.1)
[2020-10-24] MEDS: PHENYTOIN 100MG (50MG/ML) INJ 100 MG/2 ML ML IV SCH ×2 (08:16→19:41)
[2020-10-24] MEDS: PANTOPRAZOLE 40 MG/VIAL IVP SCH (08:17)
[2020-10-24] MEDS: LACTULOSE 20 GM/30 ML UDCUP PO SCH (08:17)
[2020-10-24] MEDS: SOLU-MEDROL 40MG VIAL IVP SCH ×2 (08:17→19:41)
[2020-10-24] MEDS: BARICITINIB (EUA) 2 MG TABLET PO SCH (08:17)
[2020-10-24] MEDS ORDERED: KAYEXALATE 15GM/60ML RC ONE (14:00)
[2020-10-24] MEDS ORDERED: SODIUM BICARB 50MEQ 50ML VIAL IV SCH (14:00)
[2020-10-24] MEDS: DEXTROSE 5%-WATER 1,000 ML IV SCH ×2 (14:22→23:36)
[2020-10-24] MEDS ORDERED: CALCIUM GLUC 1GM VIAL IV SCH (14:30)
[2020-10-24] MEDS: FENTANYL 2500MCG+NS 250ML 250 ML IV SCH (15:57)
[2020-10-24] MEDS: CEFEPIME HCL 2 GM VIAL IVP SCH (15:59)
[2020-10-24] MEDS: VASOPRESSIN 20 UNITS in 0.9%NACL 100ML 100 ML IV SCH (16:01)
[2020-10-24 18:22] LABS: INR 1.28 (0.85-1.15); PROTHROMBIN TIME 13.6 SEC (9.6-11.6)
[2020-10-24 18:24] LABS: PARTIAL THROMBOPLASTIN TIME 54.6 SEC (26.3-35.5)
[2020-10-25] VITALS (41 sets, daily range): BP systolic 107–145; BP diastolic 64–84
[2020-10-25 04:11] LABS: ABG BASE EXCESS -10.5 mmol/L (-2.0-3.0); ABG HCO3 14.7 mmol/L (21.0-28.0); ABG OXYGEN SATURATION 92.1 % (95.0-99.0); ABG PCO2 31 mmHg (35-48)
[2020-10-25 05:04] LABS: BASOPHILS % (AUTO) 0.2 % (0.0-5.0); HEMATOCRIT 43.3 % (42-54); LYMPHOCYTES % (AUTO) 3.6 % (21.0-51.0); MEAN CORPUSCULAR HEMOGLOBIN 30.9 pg (27.0-33.0); MEAN CORPUSCULAR HGB CONC 31.4 g/dL (32.0-36.0); MEAN CORPUSCULAR VOLUME 98.4 fL (79-99); MONOCYTES % (AUTO) 3.5 % (3.0-13.0); NEUTROPHILS % (AUTO) 90.9 % (40.0-77.0); NUCLEATED RED BLOOD CELLS 0.2 % (0.0-0.19); PLATELET COUNT (AUTO) 268 K/uL (130-400); RED CELL DISTRIBUTION WIDTH 15.5 % (11.0-15.5); WHITE BLOOD COUNT (AUTO) 21.7 K/uL (4.8-10.8)
[2020-10-25 06:10] LABS: CREATININE 4.9 mg/dL (0.5-1.5); CRP QUANTITATIVE 155.5 mg/L (0.00-9.0)
[2020-10-25] MEDS: MIDODRINE HCL 5 MG TABLET GT SCH ×3 (06:15→21:56)
[2020-10-25] MEDS: 0.9% NACL 250ML IVPB SCH ×2 (06:15→18:40)
[2020-10-25] MEDS: DOXYCYCLINE 100MG+NS 250ML IV SCH ×2 (06:15→18:40)
[2020-10-25] MEDS: INSULIN HUMULIN R 100 UNIT/ML 3ML SQ SCH ×4 (06:16→23:23)
[2020-10-25] MEDS: CISATRACURIUM BESYLATE 100 MG in 0.9%NACL 100ML 100 ML IV SCH ×3 (06:17→22:15)
[2020-10-25] MEDS: PROPOFOL 1000 MG/100 ML 100 ML IV SCH ×2 (06:17→16:08)
[2020-10-25 06:35] LABS: POTASSIUM 6.5 mmol/L (3.5-5.1)
[2020-10-25] MEDS: PANTOPRAZOLE 40 MG/VIAL IVP SCH (08:33)
[2020-10-25] MEDS: LACTULOSE 20 GM/30 ML UDCUP PO SCH (08:33)
[2020-10-25] MEDS: PHENYTOIN 100MG (50MG/ML) INJ 100 MG/2 ML ML IV SCH ×2 (08:33→20:40)
[2020-10-25] MEDS: BARICITINIB (EUA) 2 MG TABLET PO SCH (08:33)
[2020-10-25] MEDS: SOLU-MEDROL 40MG VIAL IVP SCH ×3 (08:33→22:04)
[2020-10-25] MEDS: DEXTROSE 5%-WATER 1,000 ML IV SCH ×2 (10:31→20:40)
[2020-10-25] MEDS ORDERED: SOLU-MEDROL 40MG VIAL IVP SCH (11:30)
[2020-10-25] MEDS: FENTANYL 2500MCG+NS 250ML 250 ML IV SCH (14:02)
[2020-10-25] MEDS: HEPARIN 25,000 UNITS/250ML D5W 250 ML IV SCH (14:05)
[2020-10-25] MEDS: MIDAZOLAM 100MG-0.9% NS 100ML 100ML BAG IV PRN (16:07)
[2020-10-25] MEDS ORDERED: KAYEXALATE 15GM/60ML RC ONE (17:30)
[2020-10-25] MEDS: CEFEPIME HCL 2 GM VIAL IVP SCH (18:41)
[2020-10-26] VITALS (63 sets, daily range): BP systolic 80–166; BP diastolic 44–82
[2020-10-26 03:21] LABS: ABG BASE EXCESS -12.6 mmol/L (-2.0-3.0); ABG HCO3 13.7 mmol/L (21.0-28.0); ABG OXYGEN SATURATION 91.4 % (95.0-99.0); ABG PCO2 33 mmHg (35-48)
[2020-10-26 04:51] LABS: INR 1.21 (0.85-1.15)
[2020-10-26 04:52] LABS: BASOPHILS % (AUTO) 0.2 % (0.0-5.0); HEMATOCRIT 41.6 % (42-54); LYMPHOCYTES % (AUTO) 2.6 % (21.0-51.0); MEAN CORPUSCULAR HEMOGLOBIN 31.7 pg (27.0-33.0); MEAN CORPUSCULAR HGB CONC 31.7 g/dL (32.0-36.0); MONOCYTES % (AUTO) 3.7 % (3.0-13.0); NEUTROPHILS % (AUTO) 92.4 % (40.0-77.0); NUCLEATED RED BLOOD CELLS 0.2 % (0.0-0.19); PLATELET COUNT (AUTO) 260 K/uL (130-400); RED BLOOD CELL COUNT(AUTO) 4.16 MIL/uL (4.50-6.20); RED CELL DISTRIBUTION WIDTH 15.3 % (11.0-15.5); WHITE BLOOD COUNT (AUTO) 26.2 K/uL (4.8-10.8)
[2020-10-26 04:53] LABS: PARTIAL THROMBOPLASTIN TIME 40.9 SEC (26.3-35.5)
[2020-10-26] MEDS: DOXYCYCLINE 100MG+NS 250ML IV SCH ×2 (05:12→18:06)
[2020-10-26] MEDS: DEXTROSE 5%-WATER 1,000 ML IV SCH ×2 (05:13→18:07)
[2020-10-26] MEDS: 0.9% NACL 250ML IVPB SCH ×2 (05:13→18:06)
[2020-10-26] MEDS: MIDODRINE HCL 5 MG TABLET GT SCH ×3 (05:13→20:53)
[2020-10-26 05:15] LABS: ALBUMIN 1.1 g/dL (3.5-5.0); BILIRUBIN,TOTAL 0.7 mg/dL (0.2-1.0); CREATININE 5.4 mg/dL (0.5-1.5); MAGNESIUM 2.5 mg/dL (1.80-2.40); PHOSPHORUS 10.7 mg/dL (2.5-4.9); TOTAL PROTEIN, SERUM 5.8 g/dL (6.0-8.3)
[2020-10-26] MEDS: INSULIN HUMULIN R 100 UNIT/ML 3ML SQ SCH ×3 (05:23→18:00)
[2020-10-26 05:24] LABS: POTASSIUM 6.3 mmol/L (3.5-5.1)
[2020-10-26] MEDS: PROPOFOL 1000 MG/100 ML 100 ML IV SCH ×3 (06:01→22:26)
[2020-10-26] MEDS: SOLU-MEDROL 40MG VIAL IVP SCH ×3 (06:26→22:12)
[2020-10-26] MEDS: CISATRACURIUM BESYLATE 100 MG in 0.9%NACL 100ML 100 ML IV SCH ×2 (07:49→23:19)
[2020-10-26] MEDS: FENTANYL 2500MCG+NS 250ML 250 ML IV SCH (07:52)
[2020-10-26] MEDS: PANTOPRAZOLE 40 MG/VIAL IVP SCH (07:53)
[2020-10-26] MEDS: LACTULOSE 20 GM/30 ML UDCUP PO SCH (07:53)
[2020-10-26] MEDS: PHENYTOIN 100MG (50MG/ML) INJ 100 MG/2 ML ML IV SCH ×2 (08:07→20:06)
[2020-10-26] MEDS: BARICITINIB (EUA) 2 MG TABLET PO SCH (08:07)
[2020-10-26] MEDS ORDERED: KAYEXALATE 15GM/60ML RC SCH (11:30)
[2020-10-26 13:07] LABS: CREATININE 5.6 mg/dL (0.5-1.5)
[2020-10-26 13:55] LABS: POTASSIUM 6.1 mmol/L (3.5-5.1)
[2020-10-26] MEDS: CEFEPIME HCL 2 GM VIAL IVP SCH (18:07)
[2020-10-26] MEDS: MIDAZOLAM 100MG-0.9% NS 100ML 100ML BAG IV PRN (22:27)
[2020-10-26] MEDS ORDERED: 0.9%NACL 1000ML 1,000 ML IV PRN (22:30)
[2020-10-26] MEDS ORDERED: HEPARIN 5,000 UNIT VIAL SQ PRN (22:30)
[2020-10-27] VITALS (80 sets, daily range): BP systolic 85–152; BP diastolic 44–113
[2020-10-27] MEDS: DEXTROSE 5%-WATER 1,000 ML IV SCH ×2 (02:15→11:51)
[2020-10-27 03:46] LABS: ABG BASE EXCESS -14.2 mmol/L (-2.0-3.0); ABG HCO3 13.6 mmol/L (21.0-28.0); ABG PCO2 38 mmHg (35-48)
[2020-10-27 04:22] LABS: BASOPHILS % (AUTO) 0.3 % (0.0-5.0); HEMATOCRIT 39.6 % (42-54); LYMPHOCYTES % (AUTO) 1.8 % (21.0-51.0); MEAN CORPUSCULAR HEMOGLOBIN 31.6 pg (27.0-33.0); MEAN CORPUSCULAR HGB CONC 31.8 g/dL (32.0-36.0); MEAN CORPUSCULAR VOLUME 99.2 fL (79-99); MONOCYTES % (AUTO) 5.3 % (3.0-13.0); NEUTROPHILS % (AUTO) 89.2 % (40.0-77.0); NUCLEATED RED BLOOD CELLS 0.6 % (0.0-0.19); PLATELET COUNT (AUTO) 165 K/uL (130-400); RED BLOOD CELL COUNT(AUTO) 3.99 MIL/uL (4.50-6.20); RED CELL DISTRIBUTION WIDTH 14.7 % (11.0-15.5)
[2020-10-27 04:26] LABS: WHITE BLOOD COUNT (AUTO) 35.8 K/uL (4.8-10.8)
[2020-10-27 04:43] LABS: BILIRUBIN,TOTAL 0.9 mg/dL (0.2-1.0); CREATININE 5.8 mg/dL (0.5-1.5); CRP QUANTITATIVE 172.7 mg/L (0.00-9.0); TOTAL PROTEIN, SERUM 5.4 g/dL (6.0-8.3)
[2020-10-27 04:51] LABS: POTASSIUM 6.3 mmol/L (3.5-5.1)
[2020-10-27 05:24] LABS: BAND NEUTROPHILS % (MANUAL) 12 % (0-2); MAN.DIFF COMMENT-IMPRESSION MANUAL DIFFERENTIAL; METAMYELOCYTES % 3 % (0-0); MONOCYTES % (MANUAL) 1 % (2-9); MYELOCYTES % 1 % (0-0); SEGMENTED NEUTROPHILS % 83 % (40-70)
[2020-10-27] MEDS: SOLU-MEDROL 40MG VIAL IVP SCH ×3 (05:32→19:44)
[2020-10-27] MEDS: MIDODRINE HCL 5 MG TABLET GT SCH ×3 (05:32→19:44)
[2020-10-27] MEDS: DOXYCYCLINE 100MG+NS 250ML IV SCH (05:32)
[2020-10-27] MEDS: 0.9% NACL 250ML IVPB SCH (05:32)
[2020-10-27] MEDS: INSULIN HUMULIN R 100 UNIT/ML 3ML SQ SCH ×4 (05:54→17:25)
[2020-10-27] MEDS: VASOPRESSIN 20 UNITS in 0.9%NACL 100ML 100 ML IV SCH (06:30)
[2020-10-27] MEDS: FENTANYL 2500MCG+NS 250ML 250 ML IV SCH (08:07)
[2020-10-27] MEDS: PROPOFOL 1000 MG/100 ML 100 ML IV SCH ×2 (08:16→18:12)
[2020-10-27] MEDS: BARICITINIB (EUA) 2 MG TABLET PO SCH (09:00)
[2020-10-27] MEDS: LACTULOSE 20 GM/30 ML UDCUP PO SCH (09:00)
[2020-10-27] MEDS: PANTOPRAZOLE 40 MG/VIAL IVP SCH (09:18)
[2020-10-27] MEDS: PHENYTOIN 100MG (50MG/ML) INJ 100 MG/2 ML ML IV SCH ×2 (09:18→19:43)
[2020-10-27] MEDS ORDERED: SODIUM BICARB 50MEQ 50ML VIAL IV SCH (10:36)
[2020-10-27] MEDS ORDERED: SODIUM BICARB 50MEQ 50ML VIAL 50 ML ONE (10:41)
[2020-10-27] MEDS ORDERED: PHARMACY COMMUNICATION MISC SCH (11:30)
[2020-10-27] MEDS ORDERED: COMPOUND PO MISCELLANEOUS 1 EACH MISC MISC PRN (12:00)
[2020-10-27] MEDS: CISATRACURIUM BESYLATE 100 MG in 0.9%NACL 100ML 100 ML IV SCH (12:02)
[2020-10-27] MEDS ORDERED: KAYEXALATE 15GM/60ML ONE (12:14)
[2020-10-27] MEDS: VANCOMYCIN 250MG/5ML ORAL SOLUTION 40ML PO SCH ×6 (12:15→19:43)
[2020-10-27] MEDS ORDERED: KAYEXALATE 15GM/60ML PO SCH (12:30)
[2020-10-27] MEDS ORDERED: MEROPENEM 500 MG VIAL IVP SCH ×2 (13:00→21:00)
[2020-10-27] MEDS ORDERED: MEROPENEM 1 GM VIAL IVP SCH (13:00)
[2020-10-27] MEDS ORDERED: SODIUM ZIRCONIUM CYCLOSILICATE 5 GM POWD.PACK PO SCH (17:30)
[2020-10-27] MEDS: HEPARIN 25,000 UNITS/250ML D5W 250 ML IV SCH (18:11)
[2020-10-27] MEDS: MIDAZOLAM 100MG-0.9% NS 100ML 100ML BAG IV PRN (18:11)
[2020-10-27] MEDS ORDERED: NA ZIRCON CYCLOSIL(LOKELMA 10GM) PO SCH (18:30)
[2020-10-27] MEDS: METOCLOPRAMIDE 10 MG/2 ML VIAL IVP SCH (19:44)
[2020-10-28] VITALS (27 sets, daily range): BP systolic 0–130; BP diastolic 0–72
[2020-10-28] MEDS: CISATRACURIUM BESYLATE 100 MG in 0.9%NACL 100ML 100 ML IV SCH ×2 (01:32→14:12)
[2020-10-28] MEDS: FENTANYL 2500MCG+NS 250ML 250 ML IV SCH (01:33)
[2020-10-28 03:58] LABS: ABG BASE EXCESS -14.7 mmol/L (-2.0-3.0); ABG HCO3 12.4 mmol/L (21.0-28.0); ABG OXYGEN SATURATION 94.7 % (95.0-99.0); ABG PCO2 33 mmHg (35-48)
[2020-10-28] MEDS: INSULIN HUMULIN R 100 UNIT/ML 3ML SQ SCH ×3 (05:14→11:47)
[2020-10-28] MEDS: PROPOFOL 1000 MG/100 ML 100 ML IV SCH (05:47)
[2020-10-28] MEDS: MIDODRINE HCL 5 MG TABLET GT SCH ×2 (05:47→13:44)
[2020-10-28 06:28] LABS: BASOPHILS % (AUTO) 0.2 % (0.0-5.0); HEMATOCRIT 33.9 % (42-54); LYMPHOCYTES % (AUTO) 2.6 % (21.0-51.0); MEAN CORPUSCULAR HEMOGLOBIN 31.1 pg (27.0-33.0); MEAN CORPUSCULAR HGB CONC 31.6 g/dL (32.0-36.0); MEAN CORPUSCULAR VOLUME 98.5 fL (79-99); MONOCYTES % (AUTO) 5.2 % (3.0-13.0); NEUTROPHILS % (AUTO) 90.8 % (40.0-77.0); NUCLEATED RED BLOOD CELLS 0.3 % (0.0-0.19); PLATELET COUNT (AUTO) 152 K/uL (130-400); RED BLOOD CELL COUNT(AUTO) 3.44 MIL/uL (4.50-6.20); WHITE BLOOD COUNT (AUTO) 29.1 K/uL (4.8-10.8)
[2020-10-28 06:49] LABS: ALBUMIN 0.8 g/dL (3.5-5.0); BILIRUBIN,TOTAL 0.9 mg/dL (0.2-1.0); CREATININE 6.3 mg/dL (0.5-1.5); POTASSIUM 5.4 mmol/L (3.5-5.1); TOTAL PROTEIN, SERUM 4.7 g/dL (6.0-8.3)
[2020-10-28 07:00] LABS: CRP QUANTITATIVE 212.3 mg/L (0.00-9.0)
[2020-10-28] MEDS: VASOPRESSIN 20 UNITS in 0.9%NACL 100ML 100 ML IV SCH (08:02)
[2020-10-28] MEDS: PANTOPRAZOLE 40 MG/VIAL IVP SCH (08:27)
[2020-10-28] MEDS: LACTULOSE 20 GM/30 ML UDCUP PO SCH (08:27)
[2020-10-28] MEDS: SOLU-MEDROL 40MG VIAL IVP SCH ×2 (08:27→13:44)
[2020-10-28] MEDS: METOCLOPRAMIDE 10 MG/2 ML VIAL IVP SCH (08:27)
[2020-10-28] MEDS: PHENYTOIN 100MG (50MG/ML) INJ 100 MG/2 ML ML IV SCH (08:28)
[2020-10-28] MEDS ORDERED: ALBUMIN (HUMAN) 25% 50 ML IV SCH (15:54)
== END 2020-10-28 16:05 | DRG 870 ==
LOC: EDH 14:01 → EDHIP 17:58 → 2AH 10-15 03:46 → 2CV 10-15 09:59
PROVIDERS: ADMIT Internal Medicine; ATTEND Internal Medicine
PROC: XW0DXM6 Introduction of Baricitinib into Mouth and Pharynx, External Approach, New Technology Group 6 (ICD-10-PCS; principal; 2020-10-14)
PROC: XW033E5 Introduction of Remdesivir Anti-infective into Peripheral Vein, Percutaneous Approach, New Technology Group 5 (ICD-10-PCS; 2020-10-14)
PROC: 5A09357 Assistance with Respiratory Ventilation, Less than 24 Consecutive Hours, Continuous Positive Airway Pressure (ICD-10-PCS; 2020-10-14)
PROC: 5A1955Z Respiratory Ventilation, Greater than 96 Consecutive Hours (ICD-10-PCS; 2020-10-15)
PROC: 0BH17EZ Insertion of Endotracheal Airway into Trachea, Via Natural or Artificial Opening (ICD-10-PCS; 2020-10-15)
PROC: 02H633Z Insertion of Infusion Device into Right Atrium, Percutaneous Approach (ICD-10-PCS; 2020-10-26)
PROC: B548ZZA Ultrasonography of Superior Vena Cava, Guidance (ICD-10-PCS; 2020-10-26)
PROC: 5A1D70Z Performance of Urinary Filtration, Intermittent, Less than 6 Hours Per Day (ICD-10-PCS; 2020-10-26)
PROC: 5A1D70Z Performance of Urinary Filtration, Intermittent, Less than 6 Hours Per Day (ICD-10-PCS; 2020-10-28)
DX: A41.89 Other specified sepsis (principal); U07.1 COVID-19; J12.82 Pneumonia due to coronavirus disease 2019; J80 Acute respiratory distress syndrome; M62.82 Rhabdomyolysis; N17.9 Acute kidney failure, unspecified; E87.2 Acidosis; E87.0 Hyperosmolality and hypernatremia; E87.1 Hypo-osmolality and hyponatremia; D68.69 Other thrombophilia; E11.52 Type 2 diabetes mellitus with diabetic peripheral angiopathy with gangrene; I74.8 Embolism and thrombosis of other arteries; Z66 Do not resuscitate; E86.1 Hypovolemia; B97.89 Other viral agents as the cause of diseases classified elsewhere; D72.810 Lymphocytopenia; D69.6 Thrombocytopenia, unspecified; E11.22 Type 2 diabetes mellitus with diabetic chronic kidney disease; N18.9 Chronic kidney disease, unspecified; E87.5 Hyperkalemia; E87.8 Other disorders of electrolyte and fluid balance, not elsewhere classified; K75.89 Other specified inflammatory liver diseases; G40.909 Epilepsy, unspecified, not intractable, without status epilepticus; A49.01 Methicillin susceptible Staphylococcus aureus infection, unspecified site; R74.02 Elevation of levels of lactic acid dehydrogenase [LDH]; R23.0 Cyanosis; I12.9 Hypertensive chronic kidney disease with stage 1 through stage 4 chronic kidney disease, or unspecified chronic kidney disease; E80.6 Other disorders of bilirubin metabolism; Z79.899 Other long term (current) drug therapy; Z90.49 Acquired absence of other specified parts of digestive tract; Z82.49 Family history of ischemic heart disease and other diseases of the circulatory system
CPT/HCPCS: 31500; 36415; 36600; 71045; 74018; 76705; 76770; 80048; 80053; 80061; 80074; 80076; 80185; 80202; 80305; 81001; 82435; 82550; 82570; 82728; 82803; 82947; 82948; 83036; 83605; 83615; 83735; 83874; 83880; 83935; 84100; 84132; 84145; 84156; 84295; 84300; 84478; 84484; 84540; 84550; 85018; 85025; 85027; 85378; 85610; 85651; 85730; 86140; 86701; 86850; 86900; 86901; 87040; 87071; 87077; 87088; 87186; 87205; 87324; 87390; 87635; 90935; 93005; 93926; 93970; 94002; 94003; 94660; 99291; C1751; C1894; C9113; C9803; G0378; J0360; J0610; J0692; J0696; J1100; J1165; J1200; J1644; J1650; J1815; J1940; J2250; J2704; J2765; J2920; J3010; J3370; J3490; J7050; J7070; J7120; P9047